=== PATIENT | female | born 1975 | race Caucasian/White ===

== ENCOUNTER 2017-05-11 09:51 | Observation (INO) | payer OTHER ==
[2017-05-11] MEDS ORDERED: ROCURONIUM 50 MG INJ (12:15)
[2017-05-11] MEDS ORDERED: SUCCINYLCHOLINE CHLORIDE 100 MG/5 ML SYG IV (12:15)
[2017-05-11] MEDS ORDERED: PROPOFOL 20 ML (12:15)
[2017-05-11] MEDS ORDERED: MIDAZOLAM 1 MG/ML 2 ML INJ (12:15)
[2017-05-11] MEDS ORDERED: CEFAZOLIN 1 GM INJ (12:15)
[2017-05-11] MEDS ORDERED: METOCLOPRAMIDE 10 MG INJ (12:31)
[2017-05-11] MEDS ORDERED: ONDANSETRON 4 MG INJ (12:31)
[2017-05-11] MEDS ORDERED: DEXAMETHASONE 4 MG/ML 1 ML INJ (12:31)
[2017-05-11] MEDS ORDERED: LABETALOL HCL 20MG INJ (12:35)
[2017-05-11] MEDS ORDERED: ACETAMINOPHEN 1000MG/100ML IV 100 ML (13:00)
[2017-05-11] MEDS ORDERED: OXYCODONE/ACETAMINOPHEN (5/325) TAB PO (13:30)
[2017-05-11] MEDS ORDERED: METOCLOPRAMIDE 10 MG INJ IV (13:30)
[2017-05-11] MEDS ORDERED: DIPHENHYDRAMINE 50 MG INJ IV (13:30)
[2017-05-11] MEDS ORDERED: FENTAnyl 50 MCG/ML VIAL IV ×2 (13:30)
[2017-05-11] MEDS ORDERED: LABETALOL HCL 20MG INJ IV (13:30)
[2017-05-11] MEDS ORDERED: EPHEDrine SULFATE 50 MG/5 ML SYG IV (13:30)
[2017-05-11] MEDS ORDERED: MEPERIDINE 25 MG INJ IV (13:30)
[2017-05-11] MEDS ORDERED: hydrALAzine 20 MG INJ IV (13:30)
[2017-05-11] MEDS ORDERED: HYDROmorphONE (0.2 MG/ML) 10ML SYG IV ×2 (13:30)
[2017-05-11] MEDS ORDERED: PHENYLephrine (100 MCG/ML) 5ML SYG (13:40)
[2017-05-11] MEDS ORDERED: SUGAMMADEX SODIUM 200 MG/2 ML VIAL IV (13:59)
[2017-05-11] MEDS ORDERED: ACETAMINOPHEN 325 MG TAB PO (14:30)
[2017-05-11] MEDS ORDERED: HYDROCODONE/APAP (5/325) TAB PO (14:30)
[2017-05-11] MEDS: FENTAnyl 50 MCG/ML VIAL IV (14:48)
[2017-05-11] MEDS: ONDANSETRON 4 MG INJ IV (14:48)
[2017-05-11] MEDS: CALCIUM CARBONATE 500 MG CHEW TAB PO ×3 (15:25→20:01)
[2017-05-11 16:04] LABS: CALCIUM 8.2 mg/dl (8.4-10.2)
[2017-05-11] MEDS: HYDROmorphONE (0.2 MG/ML) 10ML SYG IV (17:36)
[2017-05-11] MEDS: D5-NS + KCL 20 MEQ 1,000 ML IV ×2 (19:04→23:49)
[2017-05-11] MEDS: morphine 4 MG/ML VIAL IV ×2 (20:00→23:52)
[2017-05-11] MEDS ORDERED: CALCIUM CARBONATE 1.25 GM TAB PO (21:00)
[2017-05-11 22:59] LABS: CALCIUM 9.5 mg/dl (8.4-10.2)
[2017-05-12] MEDS: DIPHENHYDRAMINE 50 MG CAP PO (00:47)
[2017-05-12 02:30] LABS: CALCIUM 9.5 mg/dl (8.4-10.2)
[2017-05-12] MEDS: morphine 4 MG/ML VIAL IV ×2 (03:56→08:07)
[2017-05-12] MEDS: D5-NS + KCL 20 MEQ 1,000 ML IV (04:33)
[2017-05-12 07:06] LABS: CALCIUM 9.2 mg/dl (8.4-10.2)
[2017-05-12] MEDS: CALCIUM CARBONATE 500 MG CHEW TAB PO (08:07)
== END 2017-05-12 11:00 | disposition home or self-care (01) ==
LOC: SDS 09:51 → REC 14:23 → MS2 18:40
PROVIDERS: Otolaryngology
DX: D34 Benign neoplasm of thyroid gland (principal); J35.2 Hypertrophy of adenoids; E03.9 Hypothyroidism, unspecified
CPT/HCPCS: 42831; 82310; 84703; 88307; 99217

== ENCOUNTER 2017-05-17 10:45 | Emergency (ER) | payer OTHER | END 2017-05-17 14:30 | disposition home or self-care (01) | LOC: FTE 10:45 | DX: L25.9 Unspecified contact dermatitis, unspecified cause (principal); Z87.891 Personal history of nicotine dependence | CPT/HCPCS: 87070; 99283 ==

== ENCOUNTER 2018-04-14 18:56 | Emergency (ER) | payer OTHER | END 2018-04-14 22:33 | disposition home or self-care (01) | LOC: FTE 18:56 | DX: M25.572 Pain in left ankle and joints of left foot (principal); E03.9 Hypothyroidism, unspecified; Z87.891 Personal history of nicotine dependence | CPT/HCPCS: 73610; 99283-25 ==